=== PATIENT | female | born 1995 | race African-American/Black ===

== ENCOUNTER 2017-12-04 16:28 | Emergency (ER) | payer OTHER ==
[2017-12-04 16:29] VITALS: BP 146/86; PULSE 111; RESP 14; TEMP 98.2; O2SAT 100
--- NOTE | 2017-12-04 17:05 | RADRPT ---
EXAM DATE/TIME: 12/04/2017 16:55 [place] COMPARISON: No previous studies available for comparison. INDICATIONS : Chest pain. MEDICAL HISTORY : None. SURGICAL HISTORY : None. ENCOUNTER: Initial ACUITY: 3 months PAIN SCORE: 10/10 LOCATION: Bilateral chest FINDINGS: PA and lateral views of the chest demonstrate the lungs to be symmetrically aerated without evidence of mass, infiltrate or effusion. The cardiomediastinal contours are unremarkable. Osseous structure s are intact. CONCLUSION: No acute cardiopulmonary process. Roberto Yip MD on December 04, 2017 at 16:59 Board Certified Radiologist. This report was verified electronically.
[2017-12-04 17:12] LABS: AUTOMATED NEUTROPHIL # 4.1 TH/MM3 (1.8-7.7); BASOPHIL % 0.5 % (0.0-2.0); EOSINOPHIL # 0.2 TH/MM3 (0-0.4); EOSINOPHIL % 1.8 % (0.0-4.0); HEMATOCRIT 37.4 % (35.0-46.0); LYMPHOCYTE # 3.4 TH/MM3 (1.0-4.8); MEAN CORPUSCULAR HEMOGLOBIN 27.4 PG (27.0-34.0); MEAN CORPUSCULAR HGB CONC 34.7 % (32.0-36.0); MEAN PLATELET VOLUME 8.6 FL (7.0-11.0); MONO % 8.6 % (0.0-8.0); MONOCYTE # 0.7 TH/MM3 (0-0.9); NEUT % 49.1 % (16.0-70.0); PLATELET COUNT 278 TH/MM3 (150-450); RED BLOOD COUNT 4.74 MIL/MM3 (4.00-5.30); RED CELL DISTRIBUTION WIDTH 13.3 % (11.6-17.2); WHITE BLOOD COUNT 8.4 TH/MM3 (4.0-11.0)
[2017-12-04 17:20] LABS: PROTHROMBIN TIME - PATIENT 9.9 SEC (9.8-11.6)
--- NOTE | 2017-12-04 17:20 | PD ---
HPI Chief Complaint: Chest Pain Time Seen by Provider: 17:18 Travel History International Travel<30 days: Yes Contact w/Intl Traveler<30days: Yes Name of Country Traveled to: [facility] Traveled to known affect area: No History of Present Illness HPI 22-year-old female presents to the emergency Department with complaint of right upper chest pain that comes and goes for the last couple months, but has been more frequent recently. Has shortness of breath while the chest pain is present. Denies chest pain or shortness of breath at this time. Chest pain occurs spontaneously. There is no known aggravating factors. Denies nausea, vomiting, abdominal pain. Denies recent illness to include cough, nasal congestion, fevers, sore throat, ear pain. Chest pain lasted approximately 30 minutes when it does occur. Describes it as a tight sensation. Rates the pain 9/10 and is worse when she takes a deep breath or moves. Denies injury. She has tried taking ibuprofen and aspirin for symptom management. No known relieving factors. Denies family history of cardiac events at this age. Denies tobacco use, illicit drug use. Denies personal cardiac history. Denies significant past medical history. No primary care provider today. Allergies to seafood. Has no other medical complaints. No other modifying factors or associated signs and symptoms. PFSH Past Medical History ?: Not LMP: now Social History Tobacco Use: No Substance Use: No Allergies-Medications (Allergen,Severity, Reaction): Coded Allergies: No Known Allergies (Unverified , 12/04/17) Review of Systems Except as stated in HPI: all other systems reviewed are Neg Physical Exam Narrative GENERAL: Well-nourished, well-developed black female patient, in no acute distress SKIN: Warm and dry. HEAD: Atraumatic. Normocephalic. EYES: Pupils equal and round. No scleral icterus. No injection or drainage. ENT: Mucosa pink and moist. NECK: Trachea midline. CHEST: No reproducible chest wall tenderness; no crepitance or deformity. No retractions or use of accessory muscles. CARDIOVASCULAR: Regular rate and rhythm. No murmur appreciated. RESPIRATORY: No accessory muscle use. Clear to auscultation. Breath sounds equal bilaterally. No retractions or tachypnea. GASTROINTESTINAL: Abdomen soft, non-tender, nondistended. Hepatic and splenic margins not palpable. Bowel sounds are active 4 quadrants. MUSCULOSKELETAL: No obvious deformities. No clubbing. No cyanosis. No edema. NEUROLOGICAL: Awake and alert. Oriented 3. No obvious cranial nerve deficits. Motor grossly within normal limits. Normal speech. Moves all extremities. 5/5 strength to all extremities. PSYCHIATRIC: Appropriate mood and affect; insight and judgment normal. Data Data Last Documented VS Vital Signs Date Time Temp Pulse Resp B/P (MAP) Pulse Ox O2 Delivery O2 Flow Rate FiO2 12/04/17 18:25 12/04/17 18:20 80 16 100 Room Air 12/04/17 16:29 98.2 Orders Orders Electrocardiogram (12/04/17 16:39) Ckmb (Isoenzyme) Profile (12/04/17 16:39) Complete Blood Count With Diff (12/04/17 16:39) Comprehensive Metabolic Panel (12/04/17 16:39) Magnesium (Mg) (12/04/17 16:39) Prothrombin Time / Inr (Pt) (12/04/17 16:39) Act Partial Throm Time (Ptt) (12/04/17 16:39) Troponin I (12/04/17 16:39) Chest, Pa & Lat (12/04/17 16:39) CKMB (12/04/17 16:45) CKMB% (12/04/17 16:45) Potassium Chloride (Kcl) (12/04/17 17:45) Ed Discharge Order (12/04/17 17:42) Labs Laboratory Tests Test 12/04/17 16:45 White Blood Count 8.4 TH/MM3 Red Blood Count 4.74 MIL/MM3 Hemoglobin 13.0 GM/DL Hematocrit 37.4 % Mean Corpuscular Volume 79.0 FL Mean Corpuscular Hemoglobin 27.4 PG Mean Corpuscular Hemoglobin Concent 34.7 % Red Cell Distribution Width 13.3 % Platelet Count 278 TH/MM3 Mean Platelet Volume 8.6 FL Neutrophils (%) (Auto) 49.1 % Lymphocytes (%) (Auto) 40.0 % Monocytes (%) (Auto) 8.6 % Eosinophils (%) (Auto) 1.8 % Basophils (%) (Auto) 0.5 % Neutrophils # (Auto) 4.1 TH/MM3 Lymphocytes # (Auto) 3.4 TH/MM3 Monocytes # (Auto) 0.7 TH/MM3 Eosinophils # (Auto) 0.2 TH/MM3 Basophils # (Auto) 0.0 TH/MM3 CBC Comment DIFF FINAL Differential Comment Prothrombin Time 9.9 SEC Prothromb Time International Ratio 1.0 RATIO Activated Partial Thromboplast Time 26.1 SEC Blood Urea Nitrogen 14 MG/DL Creatinine 0.64 MG/DL Random Glucose 99 MG/DL Total Protein 8.0 GM/DL Albumin 3.8 GM/DL Calcium Level 8.5 MG/DL Magnesium Level 1.9 MG/DL Alkaline Phosphatase 101 U/L Aspartate Amino Transf (AST/SGOT) 18 U/L Alanine Aminotransferase (ALT/SGPT) 16 U/L Total Bilirubin 0.1 MG/DL Sodium Level 140 MEQ/L Potassium Level 3.3 MEQ/L Chloride Level 107 MEQ/L Carbon Dioxide Level 26.8 MEQ/L Anion Gap 6 MEQ/L Estimat Glomerular Filtration Rate 115 ML/MIN Total Creatine Kinase 200 U/L Creatine Kinase MB 0.5 NG/ML Creatine Kinase MB % 0.3 % Troponin I LESS THAN 0.02 NG/ML MDM Medical Decision Making Medical Screen Exam Complete: Yes Emergency Medical Condition: Yes Medical Record Reviewed: Yes Differential Diagnosis Chest wall pain, costochondritis, muscle strain and chest wall, nonspecific chest pain Narrative Course CBC unremarkable. Potassium 3.3, otherwise BMP unremarkable. Troponin less than 0.02. CK 200. Coags unremarkable. Chest x-ray unremarkable. EKG with normal sinus rhythm without ST elevation or depression. Potassium 40mEq administered in the ER. Patient discussed with Dr. Marcano, my attending physician, and he agrees with discharge. Instructed patient to follow up with primary care provider. Patient verbalizes understanding and agreement with treatment plan. Patient is medically cleared and stable for discharge. Discussed reasons to return to the emergency department. Patient agrees with treatment plan. The patients vital signs are stable and the patient is stable for outpatient follow-up and treatment. Patient discharged home, stable and in no acute distress. Diagnosis Primary Impression: Right-sided chest pain Referrals: Primary Care Physician Patient Instructions: Chest Pain (ED), Chest Wall Pain (ED), General Instructions Additional Instructions: Ibuprofen or Tylenol as instructed and as needed for pain Avoid aggravating activity Follow-up with primary care provider Return to the emergency department immediately with worsening of symptoms Med/Other Pt SpecificInfo: No Change to Meds, No Meds Exist/No RX given Disposition: DISCHARGE HOME Condition: Stable Rassi,Maite K IRRIGATOR HEAD Dec 04, 2017 17:20
[2017-12-04 17:29] LABS: ALBUMIN 3.8 GM/DL (3.4-5.0); ALT (GPT) 16 U/L (10-53); AST (GOT) 18 U/L (15-37); BICARBONATE 26.8 MEQ/L (21.0-32.0); BLOOD UREA NITROGEN 14 MG/DL (7-18); CALCIUM 8.5 MG/DL (8.5-10.1); CHLORIDE 107 MEQ/L (98-107); CREATININE 0.64 MG/DL (0.50-1.00); GLOMERULAR FILTRATION RATE 115 ML/MIN (>89); GLUCOSE,RANDOM 99 MG/DL (74-106); MAGNESIUM 1.9 MG/DL (1.5-2.5); SODIUM (NA) 140 MEQ/L (136-145)
[2017-12-04 17:33] LABS: ALKALINE PHOSPHATASE 101 U/L (45-117); TOTAL BILIRUBIN ADULT 0.1 MG/DL (0.2-1.0); TROPONIN I LESS THAN 0.02 NG/ML (0.02-0.05)
[2017-12-04] MEDS ORDERED: POTASSIUM CHLORIDE 20 MEQ CONTROLLED RELEASE TAB PO ONE (17:45)
[2017-12-04 18:20] VITALS: BP 121/69; PULSE 80; RESP 16; O2SAT 100
--- NOTE | 2017-12-05 13:45 | EKG ---
Date Performed: 12/04/2017 Time Performed: 16:47:38 PTAGE: 22 years EKG: Sinus rhythm NORMAL ECG NO PREVIOUS TRACING DOCTOR: Usman Lamb Interpretating Date/Time 12/05/2017 13:42:45
== END 2017-12-04 18:28 | disposition home or self-care (01) ==
LOC: NEPD 16:28
DX: R07.9 Chest pain, unspecified (principal); R06.02 Shortness of breath
CPT/HCPCS: 71046; 80053; 82550; 82552; 83735; 84484; 85025; 85610; 85730; 93005; 99285